=== PATIENT | female | born 1945 | race Caucasian/White ===

== ENCOUNTER → 2016-11-29 | Outpatient (CLI) | payer MEDICARE, OTHER ==
[~2016-11-29] MED LIST: AMITRIPTYLINE 550 MG PO; AMLODIPINE BESY10 M1 PO; ASPIRIN 81MG TA81 MG PO; BENAZEPRIL HYDR40 MG PO; CALCIUM ACETAT667 MG PO; CLOPIDOGREL75 M2 PO; FENOFIBRATE160 MG PO; FUROSEMIDE 20MG20 MG PO; HUMALOG MIX75/253 ML SC; HUMALOG SC; HUMALOG100 U/ML SC; HYDROCODONE-APA1 TA1 PO; LIPITOR40 MG PO; LOVASTATIN20 MG PO; METFORMIN1000 MG PO; METOPROLOL25 MG PO; SEROQUEL 25MG T25 MG PO
--- NOTE | 2016-11-29 23:15 | RADIOLOGY REPORT PS360 ---
US [id number] ORDERING PHYSICIAN : Bronson Garrison MD PATIENT AGE: 71 years GENDER: Female INDICATION: DECREASED KIDNEY FUNCTION TECHNIQUE: Ultrasound both kidneys COMPARISON: None FINDINGS Kidneys appear normal size No hydronephrosis. No significant mass. Good color Doppler flow to both kidneys. . Cortex fairly well maintained but with suggestive some mild diffuse cortical thinning bilaterally is slight increased echogenicity of the cortex which yields a slightly hypoechoic appearance of the renal pyramids bilateral. This appearance is suggestive & may reflect developing intrinsic, medical renal disease. Right kidney 10.2 cm in length as 3.9 cm x 6.2 cm. Left kidney 9.5 cm x 5 cm x 5 cm. Limited images spleen appeared normal size. Liver with upper normal echogenicity. IMPRESSION: Kidneys appear normal in size. No hydronephrosis nor mass. Borderline to mild diffuse cortical thinning kidneys. Suggestion of subtle echogenicity of renal cortex is well. These features reflecting medical renal disease.
== END ==
LOC: RAD 13:22
DX: N28.9 Disorder of kidney and ureter, unspecified (principal)